=== PATIENT | male | born 1960 | race Caucasian/White ===

== ENCOUNTER 2020-05-03 17:23 | Emergency (ER) | payer BC, OTHER ==
[2020-05-03] MEDS ORDERED: Ciprofloxacin 500 MG Tab PO ONE ×2 (17:24→17:58)
--- NOTE | 2020-05-03 17:49 | EDM.PDOC ---
<Jaylen Hernandez - Last Filed: 05/03/20 17:52> ED HPI GENERAL MEDICAL PROBLEM - General Chief Complaint: Genitourinary Problem Stated Complaint: CATHEDER PLUGGED Time Seen by Provider: 05/03/20 17:35 - Related Data Allergies Allergy/AdvReac Type Severity Reaction Status Date / Time contrast dye Allergy Hives Uncoded 05/03/20 17:34 Home Meds: Home Meds Metoprolol Succinate [Toprol XL 100mg] 100 mg PO DAILY 12/03/13 [History] Omeprazole 20 mg PO DAILY 12/03/13 [History] Simvastatin 40 mg PO DAILY 12/03/13 [History] Tamsulosin HCl 0.4 mg PO DAILY 12/03/13 [History] Hydrocodone/Acetaminophen [Hydrocodone-Acetamin 5-325 mg] 1 each PO Q4HR PRN 05/03/20 [History] Oxybutynin Chloride [Oxybutynin Chloride ER] 10 mg PO DAILY 05/03/20 [History] Tolterodine Tartrate [Detrol LA] 4 mg PO DAILY 05/03/20 [History] Course - Re-Assessments/Exams Free Text/Narrative Re-Assessment/Exam: 05/03/20 17:52 I saw and evaluated the patient. Discussed with resident and agree with residents findings and plan as documented in the residents note. Departure - Departure Disposition: Home, Self-Care 01 Clinical Impression: Catheter-associated urinary tract infection - Discharge Information Instructions: Indwelling Urinary Catheter Care, Adult Forms: ED Department Discharge <Fernando Hayes - Last Filed: 05/03/20 18:30> ED HPI GENERAL MEDICAL PROBLEM - General Source of Information: Reports: Patient History Limitations: Reports: No Limitations - History of Present Illness INITIAL COMMENTS - FREE TEXT/NARRATIVE: Patient is a 59yo male here today with concerns about urinary catheter. He recently had surgery on Monday for bladder cancer and has a triple lumen tube. He believes there is a blockage in the tube and he has been urinating around it. He has noted a few blood clots in the urine occasionally. He called urology and was told that reporting to the ER locally should allow us to irrigate the catheter to fixk the blockage. Occasional pus noted around the meatus. Patient is due to have the catheter removed on Monday. He states he was taking amoxicillin prior to the surgery and finished his last dose yesterday. No N/V/D, respiratory symptoms or chest pain or TREJO. He was tested for COVID prior to surgery but never heard the result. He presumes it was negative due to the surgery going forward. Patient was a pack-a-day smoker, but is now only on 5-7 cigarettes a day. Known allergies to IV dye and Cats. 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 ED EXAM, RENAL/ - Physical Exam Exam: See Below Exam Limited By: No Limitations General Appearance: Alert, No Apparent Distress Eye Exam: Bilateral Eye: Normal Inspection Ears: Normal External Exam Nose: Normal Inspection Head: Atraumatic Neck: Normal Inspection Respiratory/Chest: No Respiratory Distress, Lungs Clear, Normal Breath Sounds Cardiovascular: Normal Peripheral Pulses, Regular Rate, Rhythm GI/Abdominal: Soft, Non-Tender (Male) Exam: Circumcised, Urethral Discharge, Other (triple lumen catheter in place) Rectal (Males) Exam: Deferred Back Exam: Normal Inspection Extremities: Normal Inspection Neurological: Alert, Oriented Psychiatric: Normal Affect, Normal Mood Skin Exam: Warm, Dry Lymphatic: Adenopathy Course - Vital Signs Last Recorded V/S: Last Vital Signs Temp 97.9 F 05/03/20 17:30 Pulse 111 H 05/03/20 17:30 Resp 18 05/03/20 17:30 BP 162/90 H 05/03/20 17:30 Pulse Ox 96 05/03/20 17:30 - Orders/Labs/Meds Meds: Medications Discontinued Medications Generic Name Dose Route Start Last Admin Trade Name Donato PRN Reason Stop Dose Admin Ciprofloxacin 500 mg 05/03/20 17:58 05/03/20 18:22 Ciprofloxacin Hcl PO 05/03/20 17:59 500 mg ONETIME ONE Administration Ciprofloxacin Confirm 05/03/20 18:13 05/03/20 18:22 Ciprofloxacin Hcl Administered 05/03/20 18:14 Not Given Dose 1,000 mg .ROUTE .STK-MED ONE - Re-Assessments/Exams Free Text/Narrative Re-Assessment/Exam: 05/03/20 17:55 Patient's catheter was irrigated through two of the lumens, the irrigation input lumen and the main drainage lumen. Some free flow was obtained after irrigation. 05/03/20 18:07 Ciprofloxacin was given for infection. Cipro script will be provided for patient to take home and fill. 05/03/20 18:23 Second irrigation was required. Departure - Departure Time of Disposition: 18:30 Condition: Good - Discharge Information *PRESCRIPTION DRUG MONITORING PROGRAM REVIEWED*: Not Applicable *COPY OF PRESCRIPTION DRUG MONITORING REPORT IN PATIENT KAT: Not Applicable Sepsis Event Note (ED) - Evaluation Sepsis Screening Result: No Definite Risk - Focused Exam Vital Signs: Vital Signs Temp Pulse Resp BP Pulse Ox 05/03/20 17:30 97.9 F 111 H 18 162/90 H 96
[2020-05-03] MEDS ORDERED: Ciprofloxacin 500 MG Tab ONE (18:13)
== END 2020-05-03 18:37 | disposition home or self-care (01) ==
LOC: DL.ED 17:23
DX: T83.518A Infection and inflammatory reaction due to other urinary catheter, initial encounter (principal); F17.210 Nicotine dependence, cigarettes, uncomplicated; Z91.041 Radiographic dye allergy status; Z79.899 Other long term (current) drug therapy
CPT/HCPCS: 51700; 99283-25; A9270-GY

== ENCOUNTER 2022-01-22 18:02 | Emergency (ER) | payer OTHER | END 2022-01-22 20:21 | disposition home or self-care (01) | LOC: DL.ED 18:02 | DX: S61.412A Laceration without foreign body of left hand, initial encounter (principal); E78.00 Pure hypercholesterolemia, unspecified; I10 Essential (primary) hypertension; N40.0 Benign prostatic hyperplasia without lower urinary tract symptoms; F17.210 Nicotine dependence, cigarettes, uncomplicated; Z86.16 Personal history of COVID-19; Z91.041 Radiographic dye allergy status; Z79.899 Other long term (current) drug therapy; W26.8XXA Contact with other sharp object(s), not elsewhere classified, initial encounter | CPT/HCPCS: 12001; 99282-25 ==